=== PATIENT | female | born 1980 | race Caucasian/White ===

== ENCOUNTER 2018-07-26 06:00 | Inpatient (IN) ==
[2018-07-26] MEDS ORDERED: Naloxone 0.4 MG/ML INJ IVP PRN (06:25)
[2018-07-26] MEDS ORDERED: Famotidine 20 MG/2 ML VIAL IVP PRN (06:25)
[2018-07-26] MEDS ORDERED: Metoclopramide 10 MG/2 ML VIAL IVP PRN ×2 (06:25→10:26)
[2018-07-26] MEDS ORDERED: Ringers Solution, Lactated 1,000 ML IVC SCH (06:30)
[2018-07-26] MEDS ORDERED: Ringers Solution, Lactated 1,000 ML ONE (06:44)
[2018-07-26 07:11] LABS: Basophils % 0.3 %; Eosinophils # 0.1 K/mcL (0.0-0.6); Eosinophils % 0.6 %; Hematocrit 36.1 % (35.3-44.9); Hemoglobin 11.9 g/dL (11.5-15.4); Immature Granulocytes % 0.7 % (0-4); Lymphocytes # 1.9 K/mcL (0.6-4.6); Lymphocytes % 16.3 %; Mean Corpuscular Hemoglobin 29.5 pg (28.0-33.3); Mean Corpuscular Volume 89.4 fL (83.0-100.0); Mean Platelet Volume 9.3 fL (9.4-12.4); Monocytes % 8.8 %; Neutrophils # 8.6 K/mcL (1.6-8.9); Platelet Count 262 K/mcL (140-400); Red Blood Count 4.04 M/mcL (3.82-4.97); Red Cell Distribution Width 13.5 % (11.5-14.5); Segmented Neutrophils % 73.3 %
[2018-07-26] MEDS ORDERED: CeFAZolin Premix DUPLEX 2,000 MG/50 ML BAG IVPB ONE (07:23)
--- NOTE | 2018-07-26 07:38 | History & Physical Report ---
Date of Encounter: 07/26/18 Time of Encounter: 07:37 24 Hour HP Update - Instructions Instructions: If the History and Physical is less than 30 days old and was completed prior to A.M. admission and or procedure and has NOT been updated on calendar day of procedure please complete this update prior to performing procedure. - Update Patient reports changes in Medical Condition: No Changes in examination, assessment, or condition: No Changes in Medication: No Preop tests/diagnostics Reviewed: Yes Pre-Op MRSA Screen: Negative Surgery Remains Indicated: Yes Consent for Planned Operative Procedure(s) Verified: Yes - Pre-Operative Checklist Preoperative Checklist Indicated: Yes Prophylactic Antibiotic Ordered: Yes Home Medications Include Beta Rachel: No Beta Rachel Taken Today (Day of Surgery): No Beta Rachel Taken Yesterday (Day Prior to Surgery): No
--- NOTE | 2018-07-26 07:46 | Anesthesia Evaluation PreOp ---
Date of Encounter: 07/26/18 Time of Encounter: 07:40 - Past History Planned Operation: LAURA Cardiac History: Denies any Significant Hx Pulmonary History: Denies Any Significant HX PLANNER/SCHEDULER History: Denies Any Significant HX Other Medical History: GERD, Other (seasonal allergies) Anesthesia History: No Prior Anesthetic Complications, Past Anesthesia (Appendectomy, nasal surgery) : Yes Alcohol Use: none Drug use: none Medications and Allergies raNITIdine HCl [Zantac] 150 mg PO 07/26/18 [History] Allergy/AdvReac Type Severity Reaction Status Date / Time codeine Allergy Itching Verified 07/26/18 06:37 - Meds/Allergy Pre-op Review Medications Reviewed: Yes Allergies Reviewed: Yes Beta Blockers on Current Med List: No Anesthesia Results - Labs 07/26/18 06:50 Anesthesia Exam BP 139/82 P 99 R 16 T 98.4 Height: 5'5" Weight: 108.4kg NPO (# of Hours): 9 Pain Scale: 0 Pain Scale Used: Numeric (1 - 10) - HEENT Pupil (Motor): Pupils equal Mallampati: II Teeth: Normal Oral Opening: Greater than 3 - PLANNER/SCHEDULER LOC: Oriented PLANNER/SCHEDULER Motor: Normal RUE, Normal LUE, Normal RLE, Normal LLE, Normal Face PLANNER/SCHEDULER Sensory: Normal: RUE, LUE, RLE, LLE, Face - Cardiac Rhythm: Regular Murmur: None JVD: No Carotid Bruit: No - Pulmonary Breath Sounds: bilateral Clear Respiratory Effort: Symmetrical Anesthesia Assess/Plan ASA Score: 2 Level of consciousness: Cooperative, Oriented, Tranquil Anesthetic Plan: Spinal Autologous Blood: Yes Monitoring Plan: Standard Monitors Recovery Plan: PACU
--- NOTE | 2018-07-26 08:35 | Anesthesia Procedures ---
Date of Encounter: 07/26/18 Time of Encounter: 08:15 Procedures: Anesthesia - Epidural/Spinal Patient ID/Chart reviewed: Yes Patient examined: Yes OB Eval: : 1 OB Eval: Hx Para: 0 OB Eval: Contractions: Non-stressed pattern Consent Obtained: Yes Supplemental Oxygen: None/Room Air Site Prep: Aseptic Technique, Sterile prep and drape, Povidone-Iodine 1% Patient position: upright Local Anesthetic: Lidocaine 1% Amount of Local Anesthetic used: 3 Interspace Used: L3-L4 Loss of Resistance (DAYNA): No Blood: No CSF: Yes Paresthesia: No Spinal Dose: Bupivicaine 0.75% 1.6ml Morphine 300mcg Procedure: Intrathecal dose administered 1st pass in upright position. Positive CSF flow with aspiration. VSS throughout. Supine for Primary . Vitals + FHT's: See anesthesia record
--- NOTE | 2018-07-26 09:19 | OB/GYN Procedure Note ---
Section - Date of procedure: 07/26/18 Preop diagnosis: other ( macrosomia) Post-op diagnosis: same Procedure: primary low transverse Surgeon: Leslee Roa Quantitated Blood Loss: 500 Was there an dietary assistant present: No Anesthesia Type: Spinal section complications: none Disposition: L&D Recovery Room Specimens: Cord blood - (s) A Delivery Date: 07/26/18 Infant Delivery Time: 08:34 Position: [place] [facility] Route of delivery: other (cesearan section) Gender: Male Viability: Viable Pounds: 9 Ounces: 3 Gram Weight: 4155 kg at 1 minute: 9 at 5 minutes: 9 Shoulder Dystocia: not encountered Specimens collected: cord blood Placenta: spontaneous - Narrative Narrative: Preoperative diagnosis: macrosomia Postoperative diagnosis same Surgeon: Leslee Roa Anesthesia: Spinal Estimated blood loss: 500 mL Findings: Viable male infant, light meconium-stained fluid, normal-appearing uterus and adnexa, normal-appearing placenta sent to Patient was taken to the operating suite and spinal anesthesia was induced. Patient was prepped and draped in normal sterile fashion. Pfannenstiel incision was created and taken down through the subcutaneous fat fascia to the rectus muscles. Rectus muscles were divided in the midline. Peritoneal cavity was entered superiorly without consequence to bowel or bladder. A low transverse incision was created. The uterus was entered without difficulty. Light meconium-stained fluid was encountered. A viable male infant was atraumatically delivered from the uterus. Cord was doubly clamped and cut. Infant was handed to our nurses in attendance. Apgars were 9 and 9 at one and 5 minutes respectively. When all placental fragments were swept clean from the uterus the uterus was closed in one length of Vicryl running interlocked fashion. Ir rigation was performed. Surgical sites were inspected. Hemostasis was assured. She had a small abrasion on the uterine fundus. Interrupted sutures were placed first hemostasis. The uterus was replaced within the abdominal cavity. Incisions were all inspected. Hemostasis was assured. Sponge lap needle and instrument counts were sure to be correct 2. Fascia was closed with 2 lengths of Vicryl. Subcutaneous tissue was reapproximated with interrupted sutures. The skin was closed with pascual. She tolerated the procedure well. At the end of the procedure all sponge lap needle and instrument counts were correct 2. The baby and patient were taken to the postanesthesia care unit. We had no intraoperative complications.
--- NOTE | 2018-07-26 10:24 | Anesthesia Evaluation Post Op ---
Date of Encounter: 07/26/18 Time of Encounter: 10:23 - Vital Signs Vital Signs: BP 123/68 P 108 R 16 T 98.2 - Lungs Lungs: Clear Ascult./Percussion - Airway Airway: Non-obstructed - Cardiovascular Regular Rate - Mental Status Mental Status: Alert & Oriented, Answers Appropriately - Pain Pain Scale: 0 Pain Scale used: Numeric (1 - 10) - Nausea Vomiting Nausea Vomiting: Not Present - Hydration Hydration: Ice chips, Landers catheter - Discharge PostOp Status: Transfer Patient to floor
[2018-07-26] MEDS ORDERED: Rho Immune Globulin 1,500 UNIT SYRINGE IM ONE (10:26)
[2018-07-26] MEDS ORDERED: Sennosides 8.6 MG TABLET PO PRN (10:26)
[2018-07-26] MEDS ORDERED: Simethicone 80 MG TAB.CHEW PO PRN (10:26)
[2018-07-26] MEDS ORDERED: Ondansetron 4 MG/2 ML VIAL IVP PRN (10:26)
[2018-07-26] MEDS ORDERED: *HR* OxyCODONE Immed Rel 5 MG TABLET PO PRN (10:36)
[2018-07-26] MEDS ORDERED: *HR* Promethazine 25 MG/ML VIAL IVP PRN (10:36)
[2018-07-26] MEDS: Oxytocin 20 units/ LR 1000 mL 20 UNIT/1,000 ML BAG IVC SCH ×2 (10:48→17:31)
[2018-07-27] MEDS: Ibuprofen 600 MG TABLET PO PRN ×4 (00:37→20:38)
[2018-07-27] MEDS: Oxytocin 20 units/ LR 1000 mL 20 UNIT/1,000 ML BAG IVC SCH (01:41)
[2018-07-27] MEDS: *HR* OxyCODONE/APAP 5/325 TABLET PO PRN ×3 (01:59→20:38)
[2018-07-27 05:58] LABS: Basophils % 0.1 %; Eosinophils % 0.2 %; Hematocrit 30.8 % (35.3-44.9); Hemoglobin 10.1 g/dL (11.5-15.4); Immature Granulocytes % 0.4 % (0-4); Lymphocytes # 1.8 K/mcL (0.6-4.6); Lymphocytes % 13.5 %; Mean Corpuscular HGB Conc 32.8 g/dL (31.6-35.5); Mean Corpuscular Hemoglobin 29.4 pg (28.0-33.3); Mean Corpuscular Volume 89.8 fL (83.0-100.0); Mean Platelet Volume 9.6 fL (9.4-12.4); Monocytes # 1.1 K/mcL (0.0-1.3); Neutrophils # 10.6 K/mcL (1.6-8.9); Platelet Count 233 K/mcL (140-400); Red Blood Count 3.43 M/mcL (3.82-4.97); Red Cell Distribution Width 13.9 % (11.5-14.5); Segmented Neutrophils % 77.8 %
[2018-07-27] MEDS: Prenatal Vit/FA 1 EACH TABLET PO SCH (09:00)
--- NOTE | 2018-07-27 10:27 | OB/GYN Progress Note ---
Date of Encounter: 07/27/18 Time of Encounter: 10:25 - Assessment and Plan (1) Status post delivery Current Visit: Yes Status: Acute Patient meeting PPD1 milestones. + flatus, denies BM. Patient reports pain managed by Motrin and Percocet. Encouraged ambulation. Mom is considering . Discussed the benefits of breastmilk and encouraged patient to let her nurse know if she wants to begin pumping while infant is in SCN. Anticipate discharge home on PPD2-3. Subjective - Subjective Interval history: Patient is resting comfortably in her room. Patient reports: appetite normal, voiding normally, pain well controlled : in NICU Objective - Vital Signs Latest vital signs: Vital Signs Temp Pulse Resp BP Pulse Ox 07/27/18 08:53 99.0 F 101 14 113/69 98 07/27/18 04:39 98.2 F 95 14 92/52 97 07/27/18 00:26 98.7 F 106 16 103/58 97 07/26/18 20:57 98.3 F 109 12 117/67 96 07/26/18 15:15 97.4 F L 112 14 115/67 95 07/26/18 14:26 97.5 F L 116 14 118/66 96 07/26/18 13:30 97.7 F 109 14 126/73 07/26/18 12:45 97.7 F 112 16 119/73 97 Intake and Output 07/26/18 07/27/18 07/27/18 23:59 07:59 15:59 Intake Total 1700 / 1700 3000 / 3000 Output Total 600 / 600 800 / 800 400 / 400 Balance 1100 / 1100 2200 / 2200 -400 / -400 Intake: IV Fluids 1000 / 1000 1400 / 1400 Pitocin 20 unit In 1,000 ml @ 1000 / 1000 1400 / 1400 125 mls/hr IVC .Q8H [facility] Rx#: [id number] Oral 700 / 700 1600 / 1600 Output: Urine 400 / 400 Catheter 600 / 600 800 / 800 Other: Weight 103.419 kg Patient Weight 07/27/18 23:59 Weight 103.419 kg - Exam Lungs: bilateral: normal Chest: Normal S1, Normal S2 Extremities: Present: edema (1+ ). Absent: tenderness Abdomen: Present: soft (+ bowel sounds). Absent: tenderness Incision: Present: dry, intact Fundal Height: 1 (Firm, midline, 1 below Umbilicus ) - Labs Labs: Laboratory Results - last 24 hr 07/27/18 05:06 WBC 13.7 H RBC 3.43 L Hgb 10.1 L D Hct 30.8 L MCV 89.8 MCH 29.4 MCHC 32.8 RDW 13.9 Plt Count 233 MPV 9.6 Immature Gran % 0.4 Seg Neutrophils % 77.8 Lymphocytes % 13.5 Monocytes % 8.0 Eosinophils % 0.2 Basophils % 0.1 Neutrophils # 10.6 H Lymphocytes # 1.8 Monocytes # 1.1 Eosinophils # 0.0 Basophils # 0.0
[2018-07-28] MEDS: *HR* OxyCODONE/APAP 5/325 TABLET PO PRN ×2 (03:21→08:06)
[2018-07-28] MEDS: Ibuprofen 600 MG TABLET PO PRN ×2 (06:00→12:00)
[2018-07-28] MEDS: Prenatal Vit/FA 1 EACH TABLET PO SCH (08:07)
[2018-07-28 08:24] VITALS: BP 119/68
--- NOTE | 2018-07-28 10:02 | Discharge Summary ---
Date of Encounter: 07/28/18 Time of Encounter: 09:57 - Discharge Diagnosis (1) Status post repeat low transverse section Priority: Primary Status: Acute Comments: Feeling well Tolerating regular diet Pain well-controlled with by mouth pain meds Ambulating independently Voiding independently Lochia light Passing flatus, no BM yet Vital signs stable Discharge home today (2) anemia Priority: Secondary Status: Acute Comments: Continue iron supplementation daily - Discharge Medications Prescriptions: New Ibuprofen [Motrin] 600 mg PO Q6HR PRN #30 tablet PRN Reason: Cramping OxyCODONE/APAP 5/325 [Percocet 5/325 MG] 1 each PO Q6HR PRN 5 Days #20 tablet PRN Reason: Moderate pain 4-6 Ferrous Sulfate 325 mg PO DAILY #30 tablet Docusate [Colace] 100 mg PO BID #30 capsule Continue raNITIdine HCl [Zantac] 150 mg PO Home Medications: raNITIdine HCl [Zantac] 150 mg PO 07/26/18 [History] Docusate [Colace] 100 mg PO BID #30 capsule 07/28/18 [Rx] Ferrous Sulfate 325 mg PO DAILY #30 tablet 07/28/18 [Rx] Ibuprofen [Motrin] 600 mg PO Q6HR PRN #30 tablet 07/28/18 [Rx] OxyCODONE/APAP 5/325 [Percocet 5/325 MG] 1 each PO Q6HR PRN 5 Days #20 tablet 07/28/18 [Rx] Allergies/Adverse Reactions: Allergy/AdvReac Type Severity Reaction Status Date / Time codeine Allergy Itching Verified 07/26/18 06:37 Data Procedures and tests throughout hospitalization: Laboratory Tests 07/26/18 07/27/18 06:50 05:06 WBC 11.7 H 13.7 H RBC 4.04 3.43 L Hgb 11.9 10.1 L D Hct 36.1 30.8 L MCV 89.4 89.8 MCH 29.5 29.4 MCHC 33.0 32.8 RDW 13.5 13.9 Plt Count 262 233 MPV 9.3 L 9.6 Immature Gran % 0.7 0.4 Seg Neutrophils % 73.3 77.8 Lymphocytes % 16.3 13.5 Monocytes % 8.8 8.0 Eosinophils % 0.6 0.2 Basophils % 0.3 0.1 Neutrophils # 8.6 10.6 H Lymphocytes # 1.9 1.8 Monocytes # 1.0 1.1 Eosinophils # 0.1 0.0 Basophils # 0.0 0.0 Date of admission: 07/26/18 06:22 Primary care physician: PCP NONE Discharging clinician: Ofelia Kang Anticipated date of discharge: 07/28/18 - Patient Status Disposition: Home, Self-Care Condition: Good Functional capacity at discharge: independent ambulation Overall status at discharge: patient is progressing back to baseline - Discharge Instructions Follow Up With: NONE,PCP [Primary Care Provider] - Leslee Roa MD [Partnered Physician] - - Diet and Activity Activity: increase activity as tolerated Diet: regular diet Hospital Course Reason for admission: section, IUP at term Delivery: section Episiotomy: none Laceration: none Other procedures: none complications: none Discharge diagnosis: IUP at term delivered [place] baby: male Hospital course: Patient presented in stable condition for repeat low transverse as scheduled. The surgery was uncomplicated. Her course has been uncomplicated as well. She will be discharged today with appropriate prescriptions and follow-up. Time Attestation: Total time spent providing and/or coordinating discharge services: Time Spent: Less than 30 minutes - VTE Reasons for not Prescribing Prophylaxis: Treatment not Indicated - Low risk for VTE Documentation of Mechanical Device: Intermittent pneumatic compression device Exam - Constitutional Vitals: Temp Pulse Resp BP Pulse Ox 98.8 F 100 14 119/68 98 07/28/18 08:23 07/28/18 08:23 07/28/18 08:23 07/28/18 08:23 07/28/18 08:23 General appearance IM: A&O X 3 - Respiratory Respiratory exam: Present: CTAB - Cardiovascular Cardiovascular exam IM: Present: RRR, +S1, +S2 - GI/Abdominal GI/Abdominal exam IM: normal bowel sounds, no peritoneal signs Incision: normal, dry, intact - Rectal Rectal exam: deferred - Uterine Tone: Firm Uterus Position: At Umbilicus, Midline - Extremities Exam Extremities exam IM: Present: full ROM, normal capillary refill, normal inspection, radial pulses palpable and symmetrical - Neurological Exam Neurological exam: alert, CN II-XII intact, normal gait, oriented X3, reflexes normal, no focal deficits, strengths equal and symetr throughout - Psychiatric Additional comments: Patient denies history of depression and anxiety. Signs and symptoms of depression discussed with patient and she verbalizes understanding of when to seek help.
== END 2018-07-28 13:41 | disposition home or self-care (01) | DRG 788 ==
LOC: 1NENULAB 06:22 → 1NENUOBS 09:31
PROVIDERS: ADMIT Obstetrics & Gynecology; ATTEND Obstetrics & Gynecology